=== PATIENT | female | born 1940 | race Caucasian/White ===

== ENCOUNTER → 2018-07-16 | Outpatient (CLI) | payer MEDICARE, OTHER ==
--- NOTE | 2018-07-16 10:09 | RAD ---
MRI Cervical Spine Without Contrast History: Left-sided neck pain, cervical radiculopathy Technique: Multiplanar, multi sequential noncontrast MR imaging was performed of the cervical spine. Comparison: None Findings: Cervical cord caliber is within normal limit without convincing focal signal abnormality allowing for artifact. There is some heterogeneous signal posterior to the visualized superior thoracic cord more commonly due to CSF pulsation artifact. Cervical vertebral body stature is preserved. There is negligible anterior spondylolisthesis at C6-7 and C7-T1. There is mild to moderate degenerative disc disease C5-C6 and C3-4, minimally at C4-5 and C6-7. There is no significant abnormality of the cervical medullary junction. There is no significant marrow edema. C2-C3: Spinal canal and neural foramina are adequate. C3-C4: Spinal canal and right neural foramen are adequate, mild posterior narrowing of the left neural foramen by facet degenerative change. C4-C5: Spinal canal and neural foramina are adequate. There is moderate to severe left and mild right facet degenerative change. C5-C6: There is a minimal disc osteophyte complex. Spinal canal and neural foramina are adequate. There is mild/moderate facet degenerative change bilaterally. C6-C7: Neural foramina and spinal canal are adequate. C7-T1: Spinal canal and neural foramina are adequate. Impression: 1. There is no cervical spinal stenosis or significant neural foramina compromise. There is mild to moderate degenerative disc disease C5-6 and C3-4. There is mild abnormal alignment. Electronically signed by: Saw Estrada MD (07/16/2018 10:06 AM) [facility]
== END | disposition home or self-care (01) ==
LOC: MRI 09:02
PROVIDERS: ATTEND Family Medicine
DX: M50.323 Other cervical disc degeneration at C6-C7 level (principal)
CPT/HCPCS: 72141

== ENCOUNTER → 2018-08-16 | Outpatient (CLI) | payer MEDICARE, OTHER ==
[~2018-08-16] MED LIST: ASA/500T PO; ATOR10TA60 PO; LEVO25TA55 PO; LOSA25TA5 PO; OMEP20CA9 PO
--- NOTE | 2018-08-16 12:39 | PAIN ---
DATE OF SERVICE: 08/16/2018 INITIAL CONSULTATION FOR PAIN CLINIC CHIEF COMPLAINT: Neck and left shoulder and upper extremity pain. HISTORY OF PRESENT ILLNESS: The patient is a 77-year-old female who presents with history of pain for about 20 years, worse over the past 1-2 years in the base of the neck and left shoulder, radiating to the left arm, mostly in the posterior aspect of the triceps on the left side but more significantly in the base of the neck causing some headaches at times, worse with reading and worse with keeping the neck in a flexed position. The patient reports it is intermittent in intensity but always present, changes during the day, worse with activity and then worse at night. It does awaken her from sleep occasionally but sometimes 3 times or more each night. The patient reports it does not affect her bowel or bladder control or ability to walk, mainly noticeable with reading, changing in position but good rotation of motion and also noticed that when she is looking over her shoulder to the right side when she is backing up her car. The patient reports she has had physical therapy, had chiropractic treatment and had exercise. These are ongoing routine as well and she is currently doing the physical therapy, exercises and has massage therapies about once to twice a month, which does decrease the pain but only very temporarily for more or less half of a day. Reading is worse part for her as well as keeping her neck in a flexed position and sleeping at night on the left side. The patient reports a disability rate from 0-10, 10 being the worst, 2 with family and home responsibilities, 1 with self care and life support activities, 5 with recreation, social activity, occupation and sexual behavior. The patient did have a cervical MRI scan dated 07/16/2018 showing [id number] degenerative disk disease at C5-C6 and C3-C4 with C3-C4 showing left neural foraminal mild posterior narrowing by facet degenerative change, C5-C6 showing minimal disk osteophyte complex with [id number] facet degenerative change bilaterally. The patient reports no loss of motor function of the upper extremities and no weakness in the arms or dropping items with the hands bilaterally. PAST MEDICAL HISTORY: Significant for hypertension, arthritis, gastroesophageal reflux, headaches and left breast cancer in 2006 status post radiation treatment and surgery. PAST SURGICAL HISTORY: Previous surgeries include left lumpectomy in 2006, tonsillectomy and bilateral bunionectomies, right knee surgery and a total knee replacement, , wrist fracture without surgery, bilateral cataract extraction and sinus surgery in the past. CURRENT MEDICATIONS: Include atorvastatin daily; Chris aspirin; omeprazole; Synthroid and a blood pressure medication, she is unsure of the name. SOCIAL HISTORY: The patient does not drink alcohol, does not smoke and does not use any illegal, illicit or recreational drugs. She is , lives with her spouse and lives locally in [place], [place]. Reports she is currently retired. FAMILY HISTORY: Significant for heart disease and cancers in a sister and brother. REVIEW OF SYSTEMS: The patient's review of systems is positive for those items mentioned in history of present illness. All systems reviewed and otherwise negative. It is complete, full and well documented on the patient's chart. PHYSICAL EXAMINATION: VITAL SIGNS: The patient's blood pressure is 135/55, pulse 61, respirations 16, temperature 98.5 degrees Fahrenheit, height is 5 feet 1 inch and weight is 158 pounds. GENERAL: The patient is awake, alert, oriented, appropriate and very pleasant demeanor. HEENT: Head shows normocephalic and atraumatic. Extraocular muscles are intact and symmetrical. Oral cavity: Mucous membranes moist and pink. Dentition intact. NECK: Shows anterior throat supple without palpable lymphadenopathy noted. Swallow reflex symmetrical. CHEST: Shows normal with inspection. Breath sounds clear to auscultation bilaterally. HEART: Shows S1 and S2 clear. No murmurs auscultated. ABDOMEN: Soft, nontender and nondistended. No palpable organomegaly is noted. No rebound or guarding demonstrated. BACK: Shows spine grossly in the midline. Normal-appearing cervical lordotic curvature, thoracic kyphotic curvature and slight flattening of the lumbar lordotic curvature. Cervical paraspinous muscle shows symmetrical on inspection, with palpation shows some mild tenderness in the inferior aspect in the middle aspect of the left of the paraspinous musculature compared to the right but is symmetrical without trigger points, without atrophy or hypertrophy. No tenderness over the spinous processes. Mild tenderness in the medial superior aspect of the left trapezius compared to the right but again no trigger points and no asymmetry, atrophy or hypertrophy. The patient has good rotational motion of the cervical spine without any significant guarding to about 45 degrees and slight past on the left and past 45 degrees significantly on the right. Full extension, full forward flexion was performed without significant difficulty or loss of range of motion. EXTREMITIES: The patient's upper extremities show deep tendon reflexes 2+ in the biceps and triceps tendons. Motor exam is strong with organic search lead strength rated 5/5. Bicep and tricep flexion also 5/5 and equal. Peripheral pulses are 2+ radial distribution. No peripheral edema is noted. Shoulder shrug is strong and intact without loss of strength on resistance with some moderate pain with resistance on the left side in the base of the neck and into the rage left shoulder, not on the right side. Abduction of the shoulder to 90 degrees is performed without difficulty, with resistance shows some mild tenderness in the base of the neck on the left and the superior medial trapezius but not the right. No loss of strength on resistance with each of these maneuvers. SKIN: Warm and dry. Good turgor. No edema. No sores, rashes or bruising. IMPRESSION: 1. This is a 77-year-old female with a long history of neck and left upper extremity pain with some radicular quality into the left arm. 2. MRI scan of the cervical spine as noted. 3. Hypertension. 4. Arthritis. 5. History of breast cancer. PLAN: Options were discussed with the patient including conservative medical management, physical therapy, interventional techniques and she would like to follow a most conservative course at this time and she is doing exercises and doing massage therapies. We discussed trying a Medrol Dosepak first. She will hold her aspirin while she is taking this for the next 6 days while the medications on a taper schedule for the Medrol and if not significantly improved, we did discuss possible cervical epidural steroid injection. She would like to try other noninterventional techniques first and if we do decide the cervical epidural steroid injection to be performed, the patient will hold her aspirin for 3 days prior to that as well. The patient will follow up in approximately one half weeks as scheduled and we will discuss her results at that time. TOMASA PENNINGTON MD DR: BALBINA/parminder JOB#: [id number] / [id number] PAULO Lees MD
== END | disposition home or self-care (01) ==
LOC: PNCL 08:16
PROVIDERS: ATTEND Anesthesiology
DX: M50.322 Other cervical disc degeneration at C5-C6 level (principal); M48.02 Spinal stenosis, cervical region; K21.9 Gastro-esophageal reflux disease without esophagitis; I10 Essential (primary) hypertension; M19.90 Unspecified osteoarthritis, unspecified site; Z85.3 Personal history of malignant neoplasm of breast; Z92.3 Personal history of irradiation
CPT/HCPCS: G0463

== ENCOUNTER → 2018-09-11 | Outpatient (CLI) | payer MEDICARE, OTHER ==
--- NOTE | 2018-09-11 08:55 | PAIN ---
DATE OF SERVICE: 09/11/2018 DIAGNOSES: Cervical radiculopathy with cervical degenerative disk disease. HISTORY OF PRESENT ILLNESS: The patient is a 77-year-old female who returns for followup status post initial evaluation and Medrol Dosepak. The patient is also doing some physical therapy and stretching and strengthening exercises on her own. The patient reports pain is better, improved by about 25% after the Medrol, especially for the first few days since she was taking. The patient reports she would like to try some more conservative measures before considering any interventional techniques. The patient rates pain as 4 on a scale of 10 at its worst, 3 on average, 1 at its least and is a 3 today, reports as aching and dull in the left shoulder, base of the neck and into the left upper extremity. The patient reports no new motor or sensory deficits, no new changes, wakes her from sleep every 4 hours if she lays on her left side, but again feels she is overall doing better and would like to continue with more conservative measures. The patient describes the pain as aching, sometimes burning and shooting, but mostly aching in the left shoulder, sometimes into the left side of the face and the left arm with occasional shooting into the left hand. PHYSICAL EXAMINATION: VITAL SIGNS: The patient's blood pressure 134/52, pulse 67, respirations 16, temperature 97.5 degrees Fahrenheit and weight is 158 pounds. GENERAL: The patient is awake, alert, oriented, appropriate, very pleasant demeanor. HEENT: Shows normocephalic, atraumatic. Extraocular movements are intact, symmetrical. Oral cavity: Mucous membranes moist and pink. Dentition is intact. NECK: Shows anterior throat supple without palpable lymphadenopathy noted. Swallow reflex is symmetrical. CHEST: Shows normal on inspection. Breath sounds clear to auscultation bilaterally. HEART: Shows S1, S2 clear. No murmurs auscultated. ABDOMEN: Soft, nontender, nondistended. No palpable organomegaly is noted. No rebound or guarding demonstrated. BACK: Shows spine grossly in the midline. Normal appearing thoracic kyphosis and lumbar lordotic curvature. Cervical paraspinous muscle shows symmetrical on inspection. On palpation shows some moderate tenderness only diffusely, more in the left than the right in the base of the cervical paraspinous muscles as well as the superior medial trapezius, but without trigger points, without radiation. The patient has full rotational motion of cervical spine, both laterally greater than 45 degrees right and left as well as full extension, full forward flexion without significant pain reported. EXTREMITIES: The patient's upper extremities show deep tendon reflexes 2+ in the biceps and triceps tendons. Motor exam is strong with 5/5 kiln worker strength, bicep and tricep flexion. Peripheral pulses are 2+ radial distribution. No peripheral edema is noted. Options were discussed with the patient. The patient's old chart was reviewed, as her current medication regimen updated. Current review of systems updated today as well. We will hold on any injections at this time as she would like to try some more conservative measures. She has acupuncture appointment set up and would like to try this first. If she is not doing better, we did discuss the potential cervical epidural steroid injection. In the future, she would like to consider this, but try more conservative measures at this time. The patient at this point will follow up on an as needed basis. TOMASA PENNINGTON MD DR: BALBINA/parminder JOB#: [id number] / [id number]
== END | disposition home or self-care (01) ==
LOC: PNCL 07:33
PROVIDERS: ATTEND Anesthesiology
DX: M50.10 Cervical disc disorder with radiculopathy, unspecified cervical region (principal)
CPT/HCPCS: G0463

== ENCOUNTER → 2021-03-01 | Outpatient (CLI) | payer MEDICARE, OTHER ==
[~2021-03-01] MED LIST changes: -LOSA25TA5 PO; +LOSA25TA54 PO; +OMEP20CA16 PO; -OMEP20CA9 PO
--- NOTE | 2021-03-01 13:13 | KCIC ---
EXAM: Lumbar spine MRI without contrast. HISTORY: Left hip pain. TECHNIQUE: Multiplanar, multisequence magnetic resonance imaging of the lumbar spine was performed wi thout contrast. COMPARISON: None. FINDINGS: There is S-shaped lumbar scoliosis, with dextrocurvature centered at the upper lumbar level s and levocurvature centered at the lower lumbar levels. There is grade 1 anterolisthesis of L5 on S1 , measuring 3 mm. There is slight retrolisthesis of T12 on L1, L1 on L2, L2 on L3, L3 on L4 and L4 an d L5. There is multilevel endplate remodeling with disc space narrowing, disc desiccation, osteophyto sis and Schmorl's node formation. This is predominantly along the left aspects of the upper lumbar le vels and right aspects of the lower lumbar levels, corresponding with levels of maximum scoliotic con cavity. There are few osseous hemangiomas. There is no fracture or suspicious osseous lesion. The con us terminates at T12-L1. At T11-T12, there is a posterior central to right paracentral disc protrusion and right anterior lat eral predominant endplate osteophytosis. There is deformation of the ventral aspect of the conus, wit hout significant central canal stenosis. At T12-L1, there is a shallow broad-based right paracentral disc protrusion superimposed on a disc bu lge and right anterior predominant endplate osteophytosis. There is mild right foraminal stenosis. At L1-L2, there is a shallow left paracentral disc protrusion superimposed on a disc bulge and endpla te osteophytosis. There is mild bilateral facet arthropathy. There is mild left foraminal stenosis. At L2-L3, there is a left paracentral disc protrusion superimposed on a left lateral predominant disc bulge and endplate osteophytosis. There is mild right and [id number] left facet arthropathy. T here is mild central canal stenosis and narrowing of the left lateral recess. At L3-L4, there is a left lateral predominant disc bulge and endplate osteophytosis. There is mild bi lateral facet arthropathy. There is mild to moderate left foraminal stenosis with abutment the exitin g left L3 nerve root. There is narrowing of the left lateral recess. There is mild central canal sten osis. At L4-L5, there are bilateral foraminal to extra foraminal disc protrusions and slight superior extru lalitha superimposed on a disc bulge and endplate osteophytosis. There is moderate bilateral facet arthr opathy. There is mild right and moderate left foraminal stenosis with abutment of the exiting left gr eater than right L4 nerve roots. At L5-S1, there are bilateral foraminal to extra foraminal disc protrusions superimposed on a disc bu lge and right lateral predominant endplate osteophytosis. There is severe bilateral facet arthropathy . There is pseudoarticulation of the right L5 transverse process with the underlying sacrum. There is severe right and mild left foraminal stenosis with abutment the exiting right greater than left L5 n erve roots. IMPRESSION: 1. Multilevel degenerative change involving the lower thoracic and lumbar spine, described in detail above. This is associated with mild right foraminal stenosis at T12-L1, mild left foraminal stenosis at L1-L2, mild central canal stenosis and narrowing of the left lateral recess at L2-L3, mild to mode rate left foraminal and central canal stenosis with narrowing of the left lateral recess at L3-L4, mo derate right and moderate left foraminal stenosis at L4-L5 and severe right and mild left foraminal s tenosis at L5-S1. 2. Lumbar scoliosis and mild multilevel listhesis, described above. Electronically signed by: Abby Yu MD (03/01/2021 1:11 PM) [facility]
== END ==
LOC: KCIC MRI 09:46
PROVIDERS: ATTEND Orthopaedic Surgery
DX: M47.815 Spondylosis without myelopathy or radiculopathy, thoracolumbar region (principal); M51.27 Other intervertebral disc displacement, lumbosacral region; M48.07 Spinal stenosis, lumbosacral region; M48.04 Spinal stenosis, thoracic region; M25.78 Osteophyte, vertebrae; M12.88 Other specific arthropathies, not elsewhere classified, other specified site; M41.86 Other forms of scoliosis, lumbar region; M43.16 Spondylolisthesis, lumbar region; M51.24 Other intervertebral disc displacement, thoracic region; M25.552 Pain in left hip
CPT/HCPCS: 72148

== ENCOUNTER → 2021-03-17 | Outpatient (CLI) | payer MEDICARE, OTHER ==
[~2021-03-17] MED LIST changes: +IOHEXOL 180 MG/ML 10 ML VIAL. ONE; +methylPREDNISolone ACETATE 40 MG/ML VIAL. ONE; +methylPREDNISolone ACETATE 80 MG/ML VIAL. ONE
--- NOTE | 2021-03-17 09:59 | PDOC ---
Progress Note - Pain Clinic Date of Service: DOS: DATE: 03/17/21 TIME: 09:56 Diagnosis: Dx: Lumbar radiculopathy with lumbar degenerative disease and lumbar spinal stenosis Cervical radiculopathy with cervical degenerative disc disease History or Present Illness: HPI: 80-year-old female returns for follow-up last seen August 2018 for cervical issues but has had increased pain in her low back now and in the left lower extremity for about a year. Patient reports no specific injury or accident that she is aware but is getting worse in the low back radiating pain in the left lower extremity posterior thigh posterior lateral thigh anterior thigh medial thigh and calf on the left side patient reports is a 3 on scale 10 is worse over the past week 3 on average to its least is a 3 today patient reports is much worse with walking and standing she did have some physical therapy which was helpful for her back but her leg is still significantly painful with walking patient reports is better with standing or sitting generally does not awaken her from sleep at night but can rarely patient reports is aching and dull sharp and shooting in the lower extremity. Patient reports no loss of motor function no bowel or bladder incontinence. Physical Exam: VS: Blood pressure is 140/59 pulse 76 respirations 18 temperature 90.0 F height is 5 foot 1 his weight is 155 pounds PE: PHYSICAL EXAMINATION: GENERAL: The patient is awake, alert, oriented, appropriate, very pleasant demeanor HEENT: Shows normocephalic, atraumatic. Extraocular movements are intact and symmetrical. Oral cavity: Mucous membranes moist and pink. NECK: Shows anterior throat supple without palpable lymphadenopathy noted. Swallow reflex symmetrical. CHEST: Shows normal on inspection. Breath sounds are clear bilaterally. HEART: Shows S1, S2 clear. No murmurs auscultated. ABDOMEN: Soft, nontender, nondistended, obese. No palpable organomegaly is noted. No rebound or guarding demonstrated. BACK: Shows spine grossly in the midline. Normal-appearing cervical lordotic curvature. Cervical paraspinous muscles show symmetrical inspection on palpation some moderate tenderness diffusely bilaterally diffusely without significant radiation. Patient shows full rotation of motion cervical spine with lateral as well as full extension full forward flexion without difficulty. There is slightly increased thoracic kyphosis, some minor flattening of the lumbar lordotic curvature. Lumbar paraspinous muscles show symmetrical on inspection, on palpation shows some moderate tenderness diffusely throughout the upper, middle and lower distribution of the paraspinous muscles bilaterally and also into the lower thoracic paraspinous musculature, firm and tender, but without specific trigger points, without radiation of pain. The patient has good rotational motion of the lumbar spine, both laterally as well as extension and flexion without significant difficulty. No tenderness over the spinous processes, sacrum or sacroiliac regions. EXTREMITIES: Lower extremities show deep tendon reflexes 1+ in the patellar and tendo calcaneus tendons. Motor exam is 4 on a scale of 5 with right dorsiflexion, extension, quadriceps and hamstring flexion and 4/5 on the left. Peripheral pulses are 1+ posterior tibial. No peripheral edema is noted bilaterally. Lower extremities are warm and dry to touch, equal in color and appearance. Upper extremity show deep tendon reflexes 2+ in the bicep and triceps tendons motor exam is strong with 5 out of 5 heel boom operator strength biceps triceps flexion peripheral pulses are 2+ radial no peripheral edema is noted. SKIN: Shows warm and dry, good turgor. No edema. No sores, rashes or bruising throughout. Procedure: Procedure: Options were discussed with the patient. Patient chart was reviewed as her current medication regimen updated current review of systems updated today as we ll. We will proceed with a lumbar epidural steroid injection stable fluoroscopic guidance. Risks were discussed including but not limited to: Bleeding, infection, possibility of epidural hematoma and subsequent neurological compromise, dural puncture, headaches, spinal cord and/or nerve damage, side effects of steroid medication, and poor results regarding pain control. Patient understands and wished to proceed. Patient will return to the clinic in approximate 2 weeks for follow-up, was counseled as return appointment activity level and side effects to be aware of. Medication Injected: Med Injected: Procedure is lumbar epidural steroid injection under local anesthetic using sterile prep and drape at the L4-5 level using C-arm fluoroscopic guidance in both AP and lateral views medications injected is 120 mg Depo-Medrol + 10 mL preservative-free normal saline and 2 mL contrast- condition at discharge is stable patient tolerated procedure well had no complications. Condition at Discharge: Condition at Discharge: Condition at discharge stable, patient alert procedure well and had no complications. TOMASA PENNINGTON MD Mar 17, 2021 09:59
--- NOTE | 2021-03-17 10:00 | PDOC4 ---
PROCEDURE Procedure Patient was consented for lumbar epidural steroid injection. Risks were dis cussed including but not limited to: Bleeding, infection, possibility of epidural hematoma and subsequent neurological compromise, dural puncture, headaches, spinal cord and/or nerve damage, side effects of steroid medication, and poor results regarding pain control. Patient understands and wished to proceed. Procedure is lumbar epidural steroid injection under local anesthetic using sterile prep and drape at the L4-5 level using C-arm fluoroscopic guidance in both AP and lateral views medications injected is 120 mg Depo-Medrol + 10 mL preservative-free normal saline and 2 mL contrast- condition at discharge is stable patient tolerated procedure well had no complications. TOMASA PENNINGTON MD Mar 17, 2021 10:00
== END | disposition home or self-care (01) ==
LOC: PNCL 09:23
PROVIDERS: ATTEND Anesthesiology
DX: M51.16 Intervertebral disc disorders with radiculopathy, lumbar region (principal); M48.061 Spinal stenosis, lumbar region without neurogenic claudication; M50.10 Cervical disc disorder with radiculopathy, unspecified cervical region; Z79.899 Other long term (current) drug therapy
CPT/HCPCS: 62323; J1030; J1040; Q9965

== ENCOUNTER → 2021-03-31 | Outpatient (CLI) | payer MEDICARE, OTHER ==
[~2021-03-31] MED LIST changes: -IOHEXOL 180 MG/ML 10 ML VIAL. ONE; -methylPREDNISolone ACETATE 40 MG/ML VIAL. ONE; -methylPREDNISolone ACETATE 80 MG/ML VIAL. ONE
--- NOTE | 2021-03-31 09:50 | PDOC ---
Progress Note - Pain Clinic Date of Service: DOS: DATE: 03/31/21 TIME: 09:47 Diagnosis: Dx: Lumbar radiculopathy with lumbar degenerative disc disease lumbar spine stenosis Cervical radiculopathy with cervical degenerative disc disease History or Present Illness: HPI: 80-year-old female returns for follow-up status post lumbar epidural to injection x1. Patient reports that 90% improvement and still improved in the low back and left greater than right lower extremities. Patient reports still some pain in the back but very minimal she is increased activity with distance walking doing household activities traveling with greater ease and comfort and sleeping better at night. Patient ports still some pain the base the neck and upper extremities bilaterally which is still fairly significant but she is apprehensive about treating this at this time. Patient reports otherwise doing well describes the pain is in the back is aching only slightly and radiating the legs only very minimally. Patient reports pain is worse in the mornings but gets better as she moves around during the day. Patient rates pain is a 1 on scale 10 at all times average worst least over the past week and is a 1 today. Patient reports no new motor or sensory deficits no new bowel or bladder incontinence or other complaints. Physical Exam: VS: Blood pressure is 147/59 pulse 67 respirations 18 temperature 97.6 weight is 155 pounds PE: PHYSICAL EXAMINATION: GENERAL: The patient is awake, alert, oriented, appropriate, very pleasant demeanor HEENT: Shows normocephalic, atraumatic. Extraocular movements are intact and symmetrical. Oral cavity: Mucous membranes moist and pink. NECK: Shows anterior throat supple without palpable lymphadenopathy noted. Swallow reflex symmetrical. CHEST: Shows normal on inspection. Breath sounds are clear bilaterally. HEART: Shows S1, S2 clear. No murmurs auscultated. ABDOMEN: Soft, nontender, nondistended. No palpable organomegaly is noted. No rebound or guarding demonstrated. BACK: Shows spine grossly in the midline. Normal-appearing cervical lordotic curvature. Cervical paraspinous muscles show symmetrical on inspection with palpation some moderate tenderness diffusely bilaterally diffusely without radiation. Patient shows good rotation of motion cervical spine with some moderate tenderness with far left lateral rotation as well as extension but not with right lateral Tatian or forward flexion. There is slightly increased thoracic kyphosis, some minor flattening of the lumbar lordotic curvature. Lumbar paraspinous muscles show symmetrical on inspection, on palpation shows some moderate tenderness diffusely throughout the upper, middle and lower distribution of the paraspinous muscles, but without specific trigger points, without radiation of pain. The patient has good rotational motion of the lumbar spine, both laterally as well as extension and flexion without significant difficulty. No tenderness over the spinous processes, sacrum or sacroiliac regions. EXTREMITIES: Lower extremities show deep tendon reflexes 1+ in the patellar and tendo calcaneus tendons. Motor exam is 4 on a scale of 5 with right dorsiflexion, extension, quadriceps and hamstring flexion and 4/5 on the left. Peripheral pulses are 1+ posterior tibial. No peripheral edema is noted bilaterally. Lower extremities are warm and dry to touch, equal in color and appearance. Upper extremity show deep tendon reflexes 2+ in the bicep tricep tendons motor exam strong with dispute resolution specialist strength rated 5 out of 5 as is bicep tricep flexion. Shoulder shrug is strong and intact with some moderate tenderness with resistance on the left but without loss of strength. Right is nontender. SKIN: Shows warm and dry, good turgor. No edema. No sores, rashes or bruising throughout. Procedure: Procedure: Options discussed with patient. Patient chart was reviewed as her current medication regimen updated current review of systems updated today as well. We will hold on any further injections at this time as patient is doing much better with her low back and lower extremities and is somewhat apprehensive, but would like to consider a cervical epidural steroid injection in the future. Patient to continue with stretching strength exercises as well as oral analgesics as currently. Medication Injected: Med Injected: None Condition at Discharge: Condition at Discharge: Condition at discharge is stable. TOMASA PENNINGTON MD March 31, 2021 09:50
== END | disposition home or self-care (01) ==
LOC: PNCL 09:23
PROVIDERS: ATTEND Anesthesiology
DX: M51.16 Intervertebral disc disorders with radiculopathy, lumbar region (principal); M48.061 Spinal stenosis, lumbar region without neurogenic claudication; M50.10 Cervical disc disorder with radiculopathy, unspecified cervical region; Z79.899 Other long term (current) drug therapy
CPT/HCPCS: G0463

== ENCOUNTER → 2021-06-27 | Outpatient (CLI) | payer MEDICARE, OTHER ==
[~2021-06-27] MED LIST changes: +IOHEXOL 180 MG/ML 10 ML VIAL. ONE; +methylPREDNISolone ACETATE 40 MG/ML VIAL. ONE; +methylPREDNISolone ACETATE 80 MG/ML VIAL. ONE
--- NOTE | 2021-06-27 11:31 | PDOC ---
Progress Note - Pain Clinic Date of Service: DOS: DATE: 06/27/21 TIME: 11:28 Diagnosis: Dx: Lumbar radiculopathy with lumbar degenerative disease lumbar spinal stenosis Cervical degenerative disease with cervical radiculopathy History or Present Illness: HPI: 80-year-old female returns for follow-up status post lumbar epidural steroid injection x1 March 17, 2021. Patient did 90% better and was doing much better after we last spoke and she returns today reporting significant pain returning now in the low back and the right greater than left lower extremity which is a new finding it was always in her left leg prior to this but now her right leg is becoming more noticeable in the posterior gluteus posterior lateral thigh lateral anterior thigh anteromedial thigh medial lower leg as well patient reports some in the left leg but mostly across the low back and in the right leg now with ambulation patient reports better with sitting or lying down generally does not awaken her from sleep at night she is which increase her distance w alking doing household activities travel with greater ease and comfort now the pain is returning but only to a moderate extent patient rates it as a 2 on scale 10 is worse over the past week 1 on average 1 its least is a 1 today. Patient reports better with sitting or lying down mostly noticeable with standing she started to hunch forward she is trying to prevent because of the pain and is worried about her posture. Patient reports no new bowel or bladder incontinence no new motor or sensory deficits. Physical Exam: VS: Blood pressure is 133/59, pulse 77, respirations 18, temperature 98.2 F height is 5 foot 1 his weight is 154 pounds PE: PHYSICAL EXAMINATION: GENERAL: The patient is awake, alert, oriented, appropriate, very pleasant in demeanor HEENT: Shows normocephalic, atraumatic. Extraocular movements are intact and symmetrical. Oral cavity: Mucous membranes moist and pink. NECK: Shows anterior throat supple without palpable lymphadenopathy noted. Swallow reflex symmetrical. CHEST: Shows normal on inspection. Breath sounds are clear bilaterally, no rales rhonchi or wheezes auscultated. HEART: Shows S1, S2 clear. No murmurs auscultated. ABDOMEN: Soft, nontender, nondistended, obese. No palpable organomegaly is noted. No rebound or guarding demonstrated. BACK: Shows spine grossly in the midline. Normal-appearing cervical lordotic curvature. There is increased thoracic kyphosis, some flattening of the lumbar lordotic curvature. Lumbar paraspinous muscles show symmetrical on inspection, on palpation shows some moderate tenderness diffusely throughout the upper, midd le and lower distribution of the paraspinous muscles without specific trigger points, without radiation of pain. The patient has good rotational motion of the lumbar spine, both laterally as well as extension and flexion without significant difficulty. EXTREMITIES: Lower extremities show deep tendon reflexes 2+ in the patellar and tendo calcaneus tendons. Motor exam is 5 on a scale of 5 with right dorsiflexion, extension, quadriceps and hamstring flexion and 5/5 on the left. Peripheral pulses are 1 posterior tibial. No peripheral edema is noted bilaterally. Lower extremities are warm and dry to touch, equal in color and appearance. SKIN: Shows warm and dry, good turgor. No edema. No sores, rashes or bruising throughout. Procedure: Procedure: Options were discussed with the patient. Patient chart reviews her current medication regimen updated current review of systems updated today as well. We will proceed with a second lumbar epidural steroid injection today with fl uoroscopic guidance. Risks were discussed including but not limited to: Bleeding, infection, possibility of epidural hematoma and subsequent neurological compromise, dural puncture, headaches, spinal cord and/or nerve damage, side effects of steroid medication, and poor results regarding pain control. Patient understands and wished to proceed. Patient will return to the clinic in approximate 2 weeks for follow-up, was counseled as return appointment activity level and side effects to be aware of. Medication Injected: Med Injected: Procedure is lumbar epidural steroid injection under local anesthetic using sterile prep and drape at the L4-5 level using C-arm fluoroscopic guidance in both AP and lateral views medications injected is 120 mg Depo-Medrol +10mL preservative-free normal saline and 2 mL contrast- condition at discharge is stable patient tolerated procedure well had no complications. Condition at Discharge: Condition at Discharge: Condition at discharge stable, patient already procedure well and had no complications. TOMASA PENNINGTON MD Jun 27, 2021 11:31
--- NOTE | 2021-06-27 11:32 | PDOC4 ---
Procedure Note: ICD 10 Code: ICD 10 Code: M54.16 M 40.07 M51.36 Procedure Note: Patient was consented for lumbar epidural steroid injection with fluoroscopic guidance. Risks were discussed including but not limited to: Bleeding, infection, possibility of epidural hematoma and subsequent neurological compromise, dural puncture, headaches, spinal cord and/or nerve damage, side effects of steroid medication, and poor results regarding pain control. Patient understands and wished to proceed. Procedure is lumbar epidural steroid injection under local anesthetic using joann rile prep and drape at the L4-5 level using C-arm fluoroscopic guidance in both AP and lateral views medications injected is 120 mg Depo-Medrol +10mL preservative-free normal saline and 2 mL contrast- condition at discharge is stable patient tolerated procedure well had no complications. TOMASA PENNINGTON MD Jun 27, 2021 11:32
== END | disposition home or self-care (01) ==
LOC: PNCL 11:00
PROVIDERS: ATTEND Anesthesiology
DX: M51.16 Intervertebral disc disorders with radiculopathy, lumbar region (principal); M48.061 Spinal stenosis, lumbar region without neurogenic claudication; M50.10 Cervical disc disorder with radiculopathy, unspecified cervical region; Z79.899 Other long term (current) drug therapy
CPT/HCPCS: 62323; J1030; J1040; Q9965